=== PATIENT | male | born 1990 | race African-American/Black ===

== ENCOUNTER 2021-11-04 12:33 | Emergency (ER) | payer MEDICAID, SELFPAY ==
[2021-11-04 12:42] VITALS: BP 156/79; PULSE 69; RESP 16; TEMP 36.1; O2SAT 100
--- NOTE | 2021-11-04 13:11 | ED.ABDPAIN ---
HPI - Abdominal Pain General Chief Complaint: Abdominal Pain Stated Complaint: Pain in abdomen and groin Time Seen by Provider: 11/04/21 13:11 Source: patient and RN notes reviewed Mode of arrival: ambulatory Limitations: no limitations History of Present Illness HPI narrative: 31-year-old male presents to the [facility] with a week to 10 days of left groin pain. Pain has been intermittent, has been heavy lifting. No treatment prior to arrival. No pain on exam. Patient denies any urinary symptoms. No testicular pain. no penile discharge Related Data Allergies Allergy/AdvReac Type Severity Reaction Status Date / Time No Known Allergies Allergy Mild Verified 11/04/21 13:04 Review of Systems Review of Systems: All systems reviewed & are unremarkable except as noted in HPI and below Constitutional: Constitutional: Reports no additional constitutional complaints, Denies chills and Denies fever(s) Eyes: Eyes: Reports no additional eye complaints ENT: Reports system reviewed and no additional complaints, except as documented Cardiovascular: Cardiovascular: Reports no additional cardiovascular complaints Respiratory: Respiratory: Reports no additional respiratory complaints Gastrointestinal: Gastrointestinal: Reports as per HPI and Reports abdominal pain Musculoskeletal: Musculoskeletal: Reports no additional musculoskeletal complaints Integumentary/Breasts: Skin/Breast: Reports system reviewed and no additional complaints, except as docu Neurologic: Reports system reviewed and no additional complaints, except as documented Psychiatric: Psychiatric: Reports no additional psychiatric complaints Allergic/Immunologic: Allergic/Immunologic: Reports no additional allergic/immunologic complaints [facility] Past Medical History Medical History (Updated 11/04/21 @ 19:48 by Cassandra Garnica APRN) No significant medical problems Surgical History Surgical History (Updated 11/04/21 @ 19:48 by Cassandra Garnica APRN) No pertinent past surgical history Comments At the time of my signature, I reviewed and agree with the nursing past medical, surgical, social, and family history. There is no relevant family history pertinent to the patient complaint. Exam Const: General: healthy appearing, no acute distress and alert Nutritional Appearance: well nourished Orientation/consciousness: patient oriented x3 Limitations: no limitations HENMT: Head: normal to inspection Ears: external ears normal General nose exam: Normal external nose present Eyes: General: appearance normal, both eyes and all related structures Conjunctivae: conjunctivae normal Pupils: Equal, round and reactive pupils present Neck: Neck: normal visual inspection, no lymphadenopathy and no meningeal signs Chest: Chest palpation & inspection: normal inspection of the chest Resp: Effort & Inspection: normal respiratory effort and no use of accessory muscles Auscultation: clear to auscultation bilaterally, no crackles, no rales, no rhonchi and no wheezes Cardio: Rate: regular rate Rhythm: regular rhythm GI: Inspection: normal to inspection, non-distended, no incisions, no large pannus and no visible herniation GI Palp: Yes Soft to palpation and No Tenderness to palpation present (GI) Auscultation: normal bowel sounds Other: Positive femoral pulse Back/Spine/Pelvis: Cervical Spine: normal cervical lordosis Thoracic/Lumbar Spine: thoracic and lumbar spine normal to inspection Skin: General skin exam: normal color Rashes: no rashes Wounds: no wounds Neuro: General: patient oriented x3, moves all extremities, no meningeal signs and no focal motor deficits Cranial nerves: Yes Equal, round and reactive pupils present Speech: normal speech Gait exam (Neuro): Normal gait present Extrem: General: normal to inspection, full ROM and capillary refill normal Psych: Appearance: grossly normal and well kempt Mental Status: mental status grossly normal Affect:
== END 2021-11-04 13:26 | disposition home or self-care (01) ==
PROVIDERS: Emergency Provider Nurse Practitioner
DX: S39.011A Strain of muscle, fascia and tendon of abdomen, initial encounter (principal); X50.0XXA Overexertion from strenuous movement or load, initial encounter
CPT/HCPCS: 99213; G0463

== ENCOUNTER 2021-11-11 18:37 | Emergency (ER) | payer MEDICAID, SELFPAY ==
--- NOTE | ~2021-11-11 | CT_ITS ---
EXAMINATION: CT abdomen pelvis w con DATE: 11/11/2021 20:57 INDICATION: Left lower quadrant pain for 2 weeks TECHNIQUE: Computed tomography (CT) of the abdomen and pelvis was performed with 100 cc Omnipaque 350 intravenous contrast. The dose-length product was 934.86 mGy-cm. Automated exposure control and iter ative reconstruction technique were employed. COMPARISON: None. FINDINGS: Lung bases are unremarkable. Heart size is normal. The liver, spleen, pancreas, adrenal gla nds and kidneys are unremarkable. Gallbladder is present. Normal appendix. No obstruction. Small fat- containing umbilical hernia. No significant vascular abnormality. No lymphadenopathy. Mild osteoarthritis of the hips. No free air or free fluid. No acute osseous abnormality. No evidence for inguinal hernia. IMPRESSION: 1. No acute abdominal abnormality. Reviewed, dictated and finalized at location A.
[2021-11-11 18:45] VITALS: BP 149/80; PULSE 79; RESP 18; TEMP 36.6; O2SAT 100
--- NOTE | 2021-11-11 19:33 | ED.ABDPAIN ---
HPI - Abdominal Pain General Chief Complaint: Abdominal Pain Stated Complaint: left abd and groin pain Time Seen by Provider: 11/11/21 18:50 Source: patient and RN notes reviewed Mode of arrival: ambulatory Limitations: no limitations History of Present Illness HPI narrative: This is a 31 year old male who presents for evaluation of left lower abdominal pain. He states his pain has been present intermittently for 2 weeks. He describes sharp pain that intermittently radiates to his left testicle. He denies any testicular swelling, enlargement or redness. He denies hematuria, dysuria or discharge. He also denies back pain, nausea, vomiting . He has not taken any medication for his pain. He rates his pain at 5/10. He states he works out often but he has not noticed a hernia. Related Data Allergies Allergy/AdvReac Type Severity Reaction Status Date / Time No Known Allergies Allergy Mild Verified 11/04/21 13:04 Review of Systems Review of Systems: All systems reviewed & are unremarkable except as noted in HPI and below Constitutional: Constitutional: Denies chills, Denies fatigue and Denies fever(s) Cardiovascular: Cardiovascular: Denies chest pain Respiratory: Respiratory: Denies chest congestion and Denies cough Gastrointestinal: Gastrointestinal: Reports abdominal pain, Denies nausea and Denies vomiting Genitourinary: Genitourinary: Denies hematuria, Denies oliguria, Denies dysuria, Denies penile discharge and Denies urinary frequency Musculoskeletal: Musculoskeletal: Denies back pain and Denies arthralgias PMFSH Past Medical History Medical History (Updated 11/11/21 @ 21:28 by Christa Mason MD) No significant medical problems Surgical History Surgical History (Updated 11/04/21 @ 19:48 by Cassandra Garnica APRN) No pertinent past surgical history Social History Social History (Updated 11/11/21 @ 19:42 by Christa Mason MD) Smoking status: Never smoker Exam Const: General: alert Nutritional Appearance: well nourished Orientation/consciousness: patient oriented x3 Limitations: no limitations HENMT: Head: normal to inspection Eyes: EOM: EOMs intact bilaterally Resp: Effort & Inspection: normal respiratory effort Auscultation: clear to auscultation bilaterally Cardio: Rate: regular rate Rhythm: regular rhythm Heart sounds: no murmurs Other: palpable pedal pulse GI: GI Palp: Yes Soft to palpation, Yes Tenderness to palpation present (GI) (LL lateral ), No Guarding due to palpation present (GI) and No Rigid due to palpation Auscultation: normal bowel sounds : Male General Exam: Yes normal external exam Penis: Yes normal penis Scrotum: scrotum normal Testes: Testes normal Back/Spine/Pelvis: Back: no CVA tenderness Skin: General skin exam: normal color Rashes: no rashes Wounds: no wounds Neuro: General: patient oriented x3, moves all extremities and CN's II-XI intact bilaterally Cranial nerves: Yes Nystagmus not present Speech: normal speech Extrem: General: normal to inspection Psych: Mental Status: mental status grossly normal Affect: normal affect Attitude: cooperative Course Reevaluation(s) Reevaluation #1: PAtient states he does not have pain at this time. His pain may be due to pitched nerve. He reports history of bulging disc from foot ball injury. Date: 11/11/21 Time: 21:25 Vital Signs Vital signs: Vital Signs Temperature 98 F 11/11/21 18:45 Pulse Rate 79 11/11/21 18:45 Respiratory Rate 18 11/11/21 18:45 Blood Pressure 149/80 H 11/11/21 18:45 Pulse Oximetry 100 11/11/21 18:45 Temperature 98 F 11/11/21 18:45 Pulse Rate 79 11/11/21 18:45 Respiratory Rate 18 11/11/21 18:45 Blood Pressure 149/80 H 11/11/21 18:45 Pulse Oximetry 100 11/11/21 18:45 MDM - Abdominal Pain Lab Data Attestation: I reviewed the patient's lab results. Result diagrams: 11/11/21 19:32 11/11/21 20:18
[2021-11-11 19:37] LABS: Basophils Percent Auto 0.6 % (0.2-1.2); Eosinophils Absolute Auto 0.1 K/mm3 (0-0.3); Eosinophils Percent Auto 1.5 % (0-4.4); Hematocrit 44.4 % (42.0-52.0); Hemoglobin 14.9 g/dL (14.0-18.0); Immature Granulocyte Absolute 0.01 K/mm3 (0.00-0.031); Immature Granulocyte Percent A 0.2 % (0-0.5); Lymphocytes Absolute Auto 2.19 K/mm3 (0.9-3.2); Lymphocytes Percent Auto 45.8 % (18.3-44.2); Mean Corpuscular HGB Conc 33.6 g/dl (32-36); Mean Corpuscular Hemoglobin 26.8 pg (26-34); Mean Corpuscular Volume 79.9 fl (80-100); Mean Platelet Volume 10.4 fl (7.4-10.4); Monocytes Absolute Auto 0.3 K/mm3 (0.1-0.6); Monocytes Percent Auto 6.5 % (2.6-8.5); Neutrophils Absolute Auto 2.2 K/mm3 (1.3-6.7); Neutrophils Percent Auto 45.4 % (45.5-73.1); Platelet Count Result 203 k/mm3 (150-375); Red Blood Count 5.56 M/mm3 (4.6-6.20); Red Cell Distribution Width 12.6 % (11.5-14.5); White Blood Count 4.8 K/mm3 (4.5-10.0)
[2021-11-11 19:40] LABS: Add Urine Microscopic? NO; Appearance Urine Clear (Clear); Bilirubin Urine Negative (Negative); Blood Urine Negative (Negative); Color Urine Yellow (Yellow); Glucose Urine UA Negative (Negative); Ketones Urine Negative (Negative); Leukocyte Esterase Ur Negative LEU/UL (Negative); Nitrate Urine Negative (Negative); Protein Urine Negative (Negative); Specific Grav Ur 1.024 (1.001-1.035); Urobilinogen Urine Negative mg/dL (<2.0)
[2021-11-11 20:35] LABS: Alanine Aminotransferase 45 U/L (6-50); Albumin Level 4.4 g/dL (3.5-5.1); Alkaline Phosphatase 75 U/L (38-126); Anion Gap 9 mmol/L (8-16); Aspartate Amino Transferase 37 U/L (17-59); Blood Urea Nitrogen 15 mg/dL (9-20); Calcium 9.2 mg/dL (8.4-10.2); Carbon Dioxide 26 mmol/L (22-30); Chloride 104 mmol/L (98-107); Estimated CRCL calculation 94 ml/min; Estimated Glomerular Filt Rate > 60; Glucose 95 mg/dL (65-110); Lipase 136 U/L (23-300); Sodium 139 mmol/L (137-145)
== END 2021-11-11 21:53 | disposition home or self-care (01) ==
PROVIDERS: Emergency Provider General Practice
DX: R10.32 Left lower quadrant pain (principal)
CPT/HCPCS: 36415; 74177; 80053; 81003; 83690; 85025; 99284; Q9967

== ENCOUNTER 2023-12-03 18:21 | Emergency (ER) | payer MEDICAID, SELFPAY ==
--- NOTE | ~2023-12-03 | XR_ITS ---
XR chest 2V Ordering provider: Eliu Gaming MD History: 33 years Male with . CP . Comparison: None. FINDINGS: MEDIASTINUM: The cardiac silhouette is not enlarged. LUNGS: No infiltrates, effusions or pneumothorax. OTHER: No free air under the diaphragm. IMPRESSION: No acute cardiopulmonary pathology. Reviewed, dictated and finalized at location A.
[2023-12-03 18:28] VITALS: BP 147/93; PULSE 66; RESP 18; TEMP 36.6; O2SAT 100
--- NOTE | 2023-12-03 18:33 | ECG_ITS ---
Test Date: 2023-12-03 18:38:32 Measurements Intervals [place] Rate: 59 P: 73 WI: 142 QRS: 63 QRSD: 92 T: -29 QT: 371 QTc: 370 Interpretive Statements SINUS BRADYCARDIA ST DEVIATION AND MODERATE T-WAVE ABNORMALITY, CONSIDER ANTEROLATERAL ISCHEMIA [-0.1+ mV T WAVE IN V3-V6] No previous ECG available for comparison Electronically Signed On 12-04-2023 09:39:55 CDT by Christian Stephens M.D.
[2023-12-03 18:48] LABS: Basophils Percent Auto 0.7 % (0.2-1.2); Eosinophils Absolute Auto 0.1 K/mm3 (0-0.3); Eosinophils Percent Auto 2.2 % (0-4.4); Hematocrit 45.9 % (42.0-52.0); Hemoglobin 15.4 g/dL (14.0-18.0); Lymphocytes Absolute Auto 1.85 K/mm3 (0.9-3.2); Lymphocytes Percent Auto 45.1 % (18.3-44.2); Mean Corpuscular HGB Conc 33.6 g/dl (32-36); Mean Corpuscular Hemoglobin 27.2 pg (26-34); Mean Platelet Volume 10.5 fl (7.4-10.4); Monocytes Absolute Auto 0.2 K/mm3 (0.1-0.6); Monocytes Percent Auto 5.6 % (2.6-8.5); Neutrophils Absolute Auto 1.9 K/mm3 (1.3-6.7); Neutrophils Percent Auto 46.4 % (45.5-73.1); Platelet Count Result 212 k/mm3 (150-375); Red Blood Count 5.67 M/mm3 (4.6-6.20); Red Cell Distribution Width 13.2 % (11.5-14.5); White Blood Count 4.1 K/mm3 (4.5-10.0)
[2023-12-03 18:58] LABS: Alanine Aminotransferase 90 U/L (6-50); Albumin Level 4.7 g/dL (3.5-5.1); Alkaline Phosphatase 81 U/L (38-126); Anion Gap 10 mmol/L (4-12); Aspartate Amino Transferase 44 U/L (17-59); Bilirubin,Total 1.1 mg/dL (0.2-1.3); Blood Urea Nitrogen 16 mg/dL (9-20); Calcium 9.5 mg/dL (8.4-10.2); Carbon Dioxide 28 mmol/L (22-30); Chloride 105 mmol/L (98-107); Estimated CRCL calculation 101 ml/min; Estimated Glomerular Filt Rate > 60; Glucose 108 mg/dL (65-110); Lipase 193 U/L (23-300); Potassium 3.8 mmol/L (3.4-5.0); Sodium 143 mmol/L (137-145)
[2023-12-03 18:59] LABS: INR 0.9; Prothrombin Time 12.2 Seconds (11.1-14.7)
[2023-12-03 19:10] LABS: Troponin I < 0.012 ng/mL (0.000-0.034)
--- NOTE | 2023-12-03 23:51 | ECG_ITS ---
Test Date: 2023-12-03 23:55:33 Measurements Intervals [place] Rate: 48 P: 70 WI: 150 QRS: 49 QRSD: 94 T: -14 QT: 424 QTc: 381 Interpretive Statements SINUS BRADYCARDIA ST ELEVATION CONSISTENT WITH INJURY, PERICARDITIS, OR EARLY REPOLARIZATION [ST ELEVATION W/O NORMALLY INFLECTED T WAVE] NONSPECIFIC ST & T-WAVE ABNORMALITY Compared to ECG 12/03/2023 18:38:32 NO SIGNFICANT CHANGES Electronically Signed On 12-04-2023 09:42:24 CDT by Christian Stephens M.D.
[2023-12-03 23:56] VITALS: BP 138/85; PULSE 55; RESP 14; O2SAT 100
--- NOTE | 2023-12-04 00:28 | ED_ITS ---
HPI - General Adult General Chief complaint: Chest Pain Stated complaint: cp Time Seen by Provider: 12/04/23 00:14 History of Present Illness HPI narrative: Patient 33-year-old gentleman who presents emergency department with chief complaint of chest pain. The patient reports for the last week he has been having pain in his chest patient states pain is a sharp type pain worse with tur shane his head to the left. The patient reports no trauma does report that he does a lot of weightlifting denies fever denies cough Related Data Allergies Allergy/AdvReac Type Severity Reaction Status Date / Time No Known Allergies Allergy Mild Verified 12/03/23 18:21 Review of Systems Review of Systems: A 10 system review of systems was completed on the patient and is negative except for what is stated in the HPI. Nursing and ancillary documentation was reviewed. PMFSH Past Medical History Medical History No significant medical problems Surgical History Surgical History No pertinent past surgical history Social History Social History Smoking status: Never smoker Exam Narrative: GENERAL: Well-appearing, well-nourished, and in no acute distress. HEAD: Normocephalic, atraumatic. EYES: PERRLA and EOMI. ENT: Nares clear, no rhinorrhea or epistaxis. Mucous membranes moist. NECK: Supple. CHEST: Clear to auscultation. No respiratory distress. HEART: Regular rate and rhythm. No murmur heard. Normal peripheral pulses. ABDOMEN: Soft, nontender, nondistended, normal active bowel sounds. EXTREMITIES: Normal range of motion. No edema. SKIN: Warm, dry, no rash. NEURO: No focal deficits. Alert and oriented x3. PSYCH: Normal mood and affect. Course Vital Signs Vital signs: Vital Signs Temperature 36.6 C 12/03/23 18:28 Pulse Rate 66 12/03/23 18:28 Respiratory Rate 18 12/03/23 18:28 Blood Pressure 147/93 H 12/03/23 18:28 Pulse Oximetry 100 12/03/23 18:28 Oxygen Delivery Room Air 12/03/23 18:28 Temperature 36.6 C 12/03/23 18:28 Pulse Rate 55 L 12/03/23 23:56 Respiratory Rate 14 12/03/23 23:56 Blood Pressure 138/85 12/03/23 23:56 Pulse Oximetry 100 12/03/23 23:56 Oxygen Delivery Room Air 12/03/23 18:28 Medical Decision Making Vital Signs Vital Signs: Vital Signs Temperature 36.6 C 12/03/23 18:28 Pulse Rate 66 12/03/23 18:28 Respiratory Rate 18 12/03/23 18:28 Blood Pressure 147/93 H 12/03/23 18:28 Pulse Oximetry 100 12/03/23 18:28 Oxygen Delivery Room Air 12/03/23 18:28 Temperature 36.6 C 12/03/23 18:28 Pulse Rate 55 L 12/03/23 23:56 Respiratory Rate 14 12/03/23 23:56 Blood Pressure 138/85 12/03/23 23:56 Pulse Oximetry 100 12/03/23 23:56 Oxygen Delivery Room Air 12/03/23 18:28 Lab Data 12/03/23 18:42 12/03/23 18:42 Labs: Lab Results 12/03/23 12/04/23 Range/Units 18:42 00:01 WBC 4.1 L (4.5-10.0) K/mm3 RBC 5.67 (4.6-6.20) M/mm3 Hgb 15.4 (14.0-18.0) g/dL Hct 45.9 (42.0-52.0) % MCV 81.0 (80-100) fl MCH 27.2 (26-34) pg MCHC 33.6 (32-36) g/dl RDW 13.2 (11.5-14.5) % Plt Count 212 (150-375) k/mm3 MPV 10.5 H (7.4-10.4) fl Immature Gran % (Auto) 0.0 (0-0.5) % Neut % (Auto) 46.4 (45.5-73.1) % Lymph % (Auto) 45.1 H (18.3-44.2) % [place] % (Auto) 5.6 (2.6-8.5) % Eos % (Auto) 2.2 (0-4.4) % Baso % (Auto) 0.7 (0.2-1.2) % Lymph # (Auto) 1.85 (0.9-3.2) K/mm3 [place] # (Auto) 0.2 (0.1-0.6) K/mm3 Eos # (Auto) 0.1 (0-0.3) K/mm3 Baso # (Auto) 0.0 (0.0-0.1) K/mm3 Abs Immat Gran (auto) 0.00 (0.00-0.031) K/mm3 Absolute Neuts (auto) 1.9 (1.3-6.7) K/mm3 Absolute Nucleated RBC 0.000 (0.0-0.012) K/mm3 Nucleated RBC % 0.0 (0.0-0.2) % PT 12.2 (11.1-14.7) Seconds INR 0.9 APTT 27.0 (22.3-36.8) Seconds Sodium 143 (137-145) mmol/L Potassium 3.8 (3.4-5.0) mmol/L Chloride 105 (98-107) mmol/L Carbon Dioxide 28 (22-30) mmol/L Anion Gap 10 (4-12) mmol/L BUN 16 (9-20) mg/dL Creatinine 1.20 (0.7-1.3) mg/dL Estim Creat Clear Calc 101 ml/min Estimated GFR > 60 (59 - ) Glucose 108 (65-110) mg/dL Calcium 9.5 (8.4-10.2) mg/dL Total Bilirubin 1.1 (0.2-1.3) mg/dL AST 44 (17-59) U/L ALT 90 H (6-50) U/L Alkaline Phosphatase 81 (38-126) U/L Troponin I < 0.012 < 0.012 (0.000-0.034) ng/mL Total Protein 8.0 (6.3-8.2) g/dL Albumin 4.7 (3.5-5.1) g/dL Lipase 193 (23-300) U/L Discharge Plan Discharge Clinical Impression: Chest pain, Chest pain, pleuritic Patient Disposition: Home, Self-Care Condition: Stable Instructions: Antibiotic Form, Chest Pain (ED), Pleurisy (ED) Prescriptions: New ibuprofen 800 mg tablet 800 mg PO TID PRN (Reason: pain) Qty: 30 0RF No Action baclofen 10 mg tablet 10 mg PO TID PRN (Reason: muscle pain) Qty: 10 0RF ibuprofen 600 mg tablet 600 mg PO TID PRN (Reason: fever or pain) Qty: 30 0RF methylprednisolone [Medrol (Johnathan)] 4 mg tablets,dose pack See Rx Instructions .ROUTE .COMPLEX Qty: 21 0RF Rx Instructions: orally per package directions ibuprofen 800 mg tablet 800 mg PO TID PRN (Reason: pain) Qty: 14 0RF Follow-up/Referrals: Dixon Cook MD [Physician] - PHYSICIAN,CONTAMINATION CONSULTANT [Primary Care Provider] - Time of Disposition: 01:30
[2023-12-04 00:37] LABS: Troponin I < 0.012 ng/mL (0.000-0.034)
[2023-12-04 00:40] VITALS: PULSE 58; O2SAT 100
== END 2023-12-04 01:50 | disposition home or self-care (01) ==
PROVIDERS: Emergency Medicine; Emergency Provider Emergency Medicine
DX: R07.89 Other chest pain (principal)
CPT/HCPCS: 36415; 71046; 80053; 83690; 84484; 85025; 85610; 85730; 93005; 99284